=== PATIENT | female | born 1955 | race Caucasian/White ===

== ENCOUNTER 2022-09-29 08:32 | Outpatient (CLI) | payer OTHER | END 2022-09-29 08:33 | disposition home or self-care (01) | LOC: CSHCT 08:32 | PROVIDERS: ATTEND Family Medicine Sports Medicine | DX: R91.1 Solitary pulmonary nodule (principal); I25.10 Atherosclerotic heart disease of native coronary artery without angina pectoris; I25.84 Coronary atherosclerosis due to calcified coronary lesion; K46.9 Unspecified abdominal hernia without obstruction or gangrene | CPT/HCPCS: 71250 ==

== ENCOUNTER 2024-03-12 12:41 | Outpatient (CLI) | payer OTHER | END 2024-03-12 12:42 | disposition home or self-care (01) | LOC: CSHCT 12:41 | PROVIDERS: ATTEND Orthopaedic Surgery | DX: Z01.818 Encounter for other preprocedural examination (principal); M17.32 Unilateral post-traumatic osteoarthritis, left knee ==